=== PATIENT | female | born 2000 | race Caucasian/White ===

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

== ENCOUNTER → 2019-01-30 | Outpatient (CLI) | payer MEDICAID, SELFPAY | END | disposition home or self-care (01) | PROVIDERS: Referring Provider Obstetrics & Gynecology; Visit Provider Obstetrics & Gynecology | DX: Z36.85 Encounter for antenatal screening for Streptococcus B (principal) | CPT/HCPCS: 87081 ==

== ENCOUNTER 2019-02-11 08:05 | Outpatient (CLI) | payer MEDICAID, SELFPAY ==
[2019-02-11] MEDS: Lactated Ringers 1,000 ML 125 ML IV (08:20)
[2019-02-11 08:26] VITALS: BMI 21.5
[2019-02-11 08:40] LABS: Hematocrit 31.7 % (37-47); Hemoglobin 9.9 g/dl (12.0-15.0); Mean Corp Hgb Conc 31.2 g/gl (32-36); Mean Corpuscular Hgb 26.5 pg (27.0-32.0); Mean Platelet Vol. 9.5 fl (6.2-12.0); Platelet Count 206 K/mm3 (150-450); RBC Distribution Width CV 14.4 % (11.6-14.6); RBC Distribution Width SD 44.9 fl (35.1-43.9); Red Blood Count 3.73 M/mm3 (4.2-5.4); Scan Indicated on CBC? Y/N NO; White Blood Count 10.3 K/mm3 (4.4-11.0)
[2019-02-11 08:49] LABS: Prothrombin Time (Protime)PT. 12.6 SECONDS (11.7-14.9)
[2019-02-11 08:50] LABS: Partial Thromboplast Time 25.8 Seconds (24.1-36.2)
--- NOTE | 2019-02-11 11:05 | PCM.OPRPT ---
Report of Operation Date of Procedure: 02/11/19 Pre-Operative Diagnosis: Breech Presentation Post-Operative Diagnosis: Breech Presentation Surgery/Procedure Performed:: External Cephalic Version Description of Surgical Findings:: Viable male in a breech presentation with placenta anterior and on the right side. Head was mobile with a single version attempt. Reactive heart tones before and after the procedure Estimated Blood Loss (mL): Minimal Fluids Replaced: Crystalloid Description of Procedure: After monitoring the baby for approximately an hour and noting reactive heart tones, the ultrasound was used to examine the baby which was noted to be in a breech presentation. Fluid was noted to be adequate and approximately 10 to 15 cm for the amniotic fluid index. Placenta was noted to be anterior but on the right. Patient consented to the procedure and understands the risk of bradycardia and possible emergency section at 37 weeks gestation. The head was noted to be very mobile and after a single version attempt the head was noted to be in the left lower quadrant and nearly vertex. I was unable to move the head any further. Ultrasound was used to demonstrate heart tones and we plan to monitor for well-being for 2 hours. Patient was instructed to follow-up later in the week in the office. Grafts/Implants Used: None - Complications None
[2019-02-11] MEDS: Lactated Ringers 1,000 ML 999 ML IV (14:15)
== END 2019-02-11 16:55 | disposition home or self-care (01) ==
LOC: WPOUT 08:13 → WP 08:13
PROVIDERS: Referring Provider Obstetrics & Gynecology; Visit Provider Obstetrics & Gynecology
DX: O32.1XX0 Maternal care for breech presentation, not applicable or unspecified (principal); Z3A.00 Weeks of gestation of pregnancy not specified
CPT/HCPCS: 96360; 96361 ×8; 59050; 59412; 76815; 85027; 85610; 85730; 86850; 86900; 99218; J7120; G0378

== ENCOUNTER 2019-02-12 09:00 | Inpatient (IN) | payer MEDICAID, SELFPAY ==
[2019-02-11 08:26] VITALS: BMI 21.5
[2019-02-12] VITALS (16 sets, daily range): BP systolic 92–115; BP diastolic 51–71; PULSE 59–89; RESP 13–17; TEMP 36.3–37.5; O2SAT 95–99; BMI 21.7
[2019-02-12] MEDS: Lactated Ringers 1,000 ML 999 ML IV (09:15)
[2019-02-12] MEDS: Terbutaline 1 MG/ML Vial 0.25 MG SC (09:15)
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
[2019-02-12 09:30] LABS: Absolute Lymphocyte Count 1.38 X10^3/ul (0.83-4.51); Absolute Neutrophil Count 9.9 X10^3/uL (2.0-7.7); Basophil# 0.01 X10^3/uL; Basophil% 0.1 % (0-1); Eosinophils% 0.8 % (0-5); Hematocrit 30.7 % (37-47); Hemoglobin 9.6 g/dl (12.0-15.0); Lymphocyte # 1.38 X10^3/ul (4.0); Lymphocyte % 11.4 % (19-41); Mean Corp Hgb Conc 31.3 g/gl (32-36); Mean Corpuscular Hgb 26.4 pg (27.0-32.0); Mean Corpuscular Volume 84.6 fL (81-99); Mean Platelet Vol. 9.3 fl (6.2-12.0); Monocyte# 0.68 X10^3/uL; Monocyte% 5.6 % (0-10); Neutrophil # 9.92 X10^3/uL (2.7-7.7); Neutrophil % 81.8 % (47-70); Platelet Count 187 K/mm3 (150-450); RBC Distribution Width CV 14.5 % (11.6-14.6); RBC Distribution Width SD 44.7 fl (35.1-43.9); Red Blood Count 3.63 M/mm3 (4.2-5.4); White Blood Count 12.1 K/mm3 (4.4-11.0)
[2019-02-12 09:31] LABS: POSITIVE COUNT NO; POSITIVE DIFFERENTIAL NO; POSITIVE MORPHOLOGY NO
[2019-02-12] MEDS: Sodium Citrate/Citric Acid 30 ML UDC PO (09:36)
[2019-02-12] MEDS: Cefazolin 2 GM in 0.9% Normal Saline 100 ML IV (09:38)
[2019-02-12] MEDS: Oxytocin 30 units/NS 500 ml 30 UNITS/500 ML IV.SOLN 167 UNITS IV (09:55)
[2019-02-12] MEDS: Methylergonovine 0.2 MG/ML Ampul IM (09:58)
[2019-02-12] MEDS: Lactated Ringers 1,000 ML 150 ML IV (10:00)
--- NOTE | 2019-02-12 10:13 | NURSING ---
Per Yonathan Connolly RN in OR.
[2019-02-12] MEDS: HYDROmorphone 0.5 MG/0.5 ML SYRINGE IV ×3 (11:30→20:22)
[2019-02-12] MEDS: Lactated Ringers 1,000 ML 100 ML IV ×2 (13:37→22:11)
[2019-02-12] MEDS: Ketorolac 30 MG/ML Syringe IV ×2 (16:13→22:11)
--- NOTE | 2019-02-12 21:10 | OP.PCM_ITS ---
Delivery Classification: ESTELLE Final AGUSTÍN: 03/03/19 Final AGUSTÍN Source: US <20 weeks Gestational age: 37 Weeks and 2 Days doctor who attended delivery (if requested by OB): Akua Chakraborty Indications: Breech presentation, advanced cervical dilatation. Indications for : Breech - labor, advanced cervical dilatation BBOW and unengaged Description of Procedure: Narrative account: After the risks, benefits and alternatives of the procedure were reviewed with the patient, informed consent was obtained. The patient was taken to the Operating room with an IV running, and placed in dorsal supine position. She refused regional anesthesia and requested general anesthesia. As she was adamant and appeared to have a good airway general anesthesia was planned. A Arceo catheter was placed while she was awake and then she was repositioned to dorsal supine position with leftward displacement of the uterus, and prepped and draped in the usual sterile fashion. Once general anesthesia was administered, a Pfannenstiel skin incision was created using the knife. The incision was carried down to the rectus fascia using the knife. The fascia was nicked in the midline. The fascial incision was extended bilaterally using curved Aragon scissors. The superior aspect of the fascial incision was grasped with Sonny clamps and tented up and the underlying rectus abdominal muscles were dissected free. In a similar manner, the inferior aspect of the facial incision was grasped with Sonny clamps tented up and the underlying rectus abdominal muscles were dissected free. The rectus abdominis muscles were in the midline and the peritoneum was identified and entered by blunt dissection high in the incision. The peritoneum was stretched laterally and a bladder blade was inserted. A low transverse uterine incision was then created using Metzenbaum scissors. The operators fingertips were used to extend the uterine incision by blunt dissection in a caudad- cephalad orientation . Clear fluid was noted at amniotomy. The feet were then grasped and delivered through the incision. By maintaining fundal pressure the infant was delivered to the level of the shoulders and the arms were reduced. The VTX was then delivered by maintaining nuchal flexion. The OP and nares were bulb suctioned on the abdomen. The cord clamped x two and cut. And the infant was handed off to the nurse awaiting delivery and to Dr Blair in attendance due to general anesthesia. The baby initially had poor tone and was not crying but recovered quickly. Male 6# 12 oz Ap 06/10. The placenta was then delivered. The uterus was exteriorized and cleared of clots and debris . The uterine incision was repaired with 1 Vicryl in a running locked fashion. A second imbricating layer was then placed, using 1 Monocryl in running nonlocked fashion. Bovie cautery was used to treat any bleeding areas . A figure of eight stitch of 1 Vicryl was placed at the R uterine angle. (a small but stable hematoma was noted at this location). Excellent hemostasis was noted. At this point the uterus was returned to the abdominal cavity. The gutters were cleared of clots and debris and the incision at the uterus was inspected. Excellent hemostasis was noted. The peritoneal edges and rectus abdominis muscles were reapproximated in the midline with interrupted and figure of eight stitches of 1 Vicryl. Excellent hemostasis was noted at the subfascial space The fascia was closed in a running nonlocked fashion with a Stratofix. The Subcutaneous fatty tissue was Bovie cauterized as needed for hemostasis. This layer was then reapproximated in a single layer closure of running 3-0 Vicryl to eliminate space. The skin edges were closed in a Subcuticular stitch of 4-0 Monocryl. The incision was cleansed. Cavilon, Steristrips, and Mepilex dressing were applied to the skin . The patient was then transferred to the recovery room bed in stable condition after tolerating the procedure well. Sponge, lap, needle and instrument counts correct times two. Medications given preop and intraoperatively included: Ancef 2 gm given collections assistant to the operating room. The patient also received Pitocin given IV after cord clamp, and Toradol 30 mg IV times one. Methergine in the R thigh times one for mild uterine atony noted at delivery. For a complete listing of medications given preop and intraoperatively, please see the anesthesia record. Amniotic Membrane Rupture Type: Artificial Amniotic Fluid Description: Clear Placenta Disposition: [facility] Drain: Arceo to straight drain Fluids Replaced: LR Cord Entanglement: None Cord Vessel Description: 3 Vessels Gender: Male (1 minute): 9 (5 minute): 9 Delayed cord clamping: No Pre-op Antibiotic Given: Ancef 2 grams IV x1 Pt instructed on risks of surgery: Bleeding, Anesthesia Risks, Infection Complications: None - Admit VTE Documentation VTE Present on Admission: No VTE Mechan Device Prophylaxis: SCD's VTE Pharm Prophylaxis ordered?: No
[2019-02-12] MEDS: 0.9% Saline Lock 10 ML Syringe IV (22:11)
[2019-02-13] MEDS: HYDROmorphone 0.5 MG/0.5 ML SYRINGE IV ×3 (01:10→14:45)
[2019-02-13 04:27] VITALS: BP 93/52; PULSE 72; RESP 17; TEMP 37.9; O2SAT 97
[2019-02-13] MEDS: Ketorolac 30 MG/ML Syringe IV ×4 (04:34→21:29)
[2019-02-13 04:48] VITALS: TEMP 36.9
--- NOTE | 2019-02-13 04:48 | NURSING ---
Pt. temporal temperature 100.2 degrees. This RN followed up with an oral temperature that was 98.4. Pt. denies feeling too hot or too cold. Vital signs WNL, with pt's blood pressure baseline being 90s/60s. Will continue to monitor.
[2019-02-13 05:03] LABS: Hematocrit 25.1 % (37-47); Hemoglobin 7.7 g/dl (12.0-15.0); Mean Corp Hgb Conc 30.7 g/gl (32-36); Mean Corpuscular Hgb 26.4 pg (27.0-32.0); Mean Platelet Vol. 9.6 fl (6.2-12.0); Platelet Count 211 K/mm3 (150-450); RBC Distribution Width CV 14.2 % (11.6-14.6); RBC Distribution Width SD 42.7 fl (35.1-43.9); Red Blood Count 2.92 M/mm3 (4.2-5.4); White Blood Count 16.5 K/mm3 (4.4-11.0)
[2019-02-13 05:05] LABS: Scan Indicated on CBC? Y/N NO
--- NOTE | 2019-02-13 07:36 | PCM.PN.OB ---
Subjective: POD#1 C/S breech in labor Doing OK. Painful. Dilaudid tolerated ok. Toradol IV q 6 hrs. Breast feeding. Objective: Lying in bed, holding baby - Physical Exam General: Alert, Oriented x3, Cooperative, No apparent distress HEENT: Atraumatic, PERRLA, EOMI, Normocephalic Neck: Supple Abdomen: Soft - fundus at 2 cm inferior to umbilicus tender c/w postop status Skin: Incision - Mepilex CDI. No shadow drainage Neurological: Cranial nerves II-XII grossly intact Psych/Mental Status: Normal Affect Vital Signs Temp Pulse Resp BP Pulse Ox 98.4 F 72 17 93/52 L 97 02/13/19 04:48 02/13/19 04:27 02/13/19 04:27 02/13/19 04:27 02/13/19 04:27 Oxygen Delivery Method Room Air Weight: 63.049 kg Body Mass Index (BMI) 21.7 Intake and Output for Last 24 Hours 02/11/19 02/12/19 02/13/19 23:59 23:59 23:59 Intake Total 3487 / 3487 1006 / 1006 Output Total 1900 / 1900 1500 / 1500 Balance 1587 / 1587 -494 / -494 Laboratory Tests Past 24 Hrs 02/12/19 02/13/19 09:15 04:57 WBC 12.1 H 16.5 H RBC 3.63 L 2.92 L Hgb 9.6 L 7.7 L Hct 30.7 L 25.1 L MCV 84.6 86.0 MCH 26.4 L 26.4 L MCHC 31.3 L 30.7 L RDW 14.5 14.2 RDW Differential 44.7 H 42.7 Plt Count 187 211 MPV 9.3 9.6 Immature Gran % (Auto) 0.300 Neut % (Auto) 81.8 H Lymph % (Auto) 11.4 L [place] % (Auto) 5.6 Eos % (Auto) 0.8 Baso % (Auto) 0.1 Absolute Neuts (auto) 9.9 H Absolute Lymphs (auto) 1.38 Total Counted Not Reportable Medical Necessity - Tobacco Use Smoking Status: Former smoker Assessment/Plan Primary C/S 37 2/7 wk labor, BREECH Stable postop. Inc diet and activity as tolerated. Begin po meds. Tolerating IV Dilaudid so will switch to PO. Prior reported allergy to morphine (hives) D/C burk for voiding trial. IV to S/L for continued toradol Postop acute blood loss anemia superimposed on iron deficiency anemia of Repeat CBC POD#2 Ferrous gluconate bid Leukocytosis. AFEB. likely reactive Repeat CBC POD#2
[2019-02-13 08:20] VITALS: BP 100/61; PULSE 73; RESP 16; TEMP 37.3; O2SAT 97
[2019-02-13] MEDS: Ferrous Gluconate 324 MG Tablet PO ×2 (11:15→16:31)
[2019-02-13] MEDS: Senna/Docusate Sodium 1 Tablet PO (11:15)
[2019-02-13 16:00] VITALS: BP 105/69; PULSE 79; RESP 16; TEMP 37.3
[2019-02-13] MEDS: Acetaminophen 500 MG Tablet 1000 MG PO (18:55)
[2019-02-13 19:50] VITALS: BP 105/65; PULSE 102; RESP 18; TEMP 37
[2019-02-13] MEDS: 0.9% Saline Lock 10 ML Syringe IV (21:28)
[2019-02-13] MEDS: Multivitamins,Ther W-Minerals Tablet 1 TABLET PO (21:45)
[2019-02-14] MEDS: Acetaminophen 500 MG Tablet 1000 MG PO ×2 (02:11→11:40)
[2019-02-14 02:14] VITALS: BP 103/69; PULSE 83; RESP 16; TEMP 37.3
[2019-02-14] MEDS: Ketorolac 30 MG/ML Syringe IV ×2 (03:11→09:37)
[2019-02-14] MEDS: 0.9% Saline Lock 10 ML Syringe IV ×2 (03:11→09:37)
[2019-02-14 06:31] LABS: Hematocrit 25.1 % (37-47); Mean Corp Hgb Conc 31.9 g/gl (32-36); Mean Corpuscular Hgb 27.1 pg (27.0-32.0); Mean Corpuscular Volume 85.1 fL (81-99); Mean Platelet Vol. 9.1 fl (6.2-12.0); Platelet Count 194 K/mm3 (150-450); RBC Distribution Width CV 14.5 % (11.6-14.6); RBC Distribution Width SD 45.2 fl (35.1-43.9); Red Blood Count 2.95 M/mm3 (4.2-5.4); White Blood Count 11.2 K/mm3 (4.4-11.0)
[2019-02-14 06:34] LABS: Scan Indicated on CBC? Y/N NO
--- NOTE | 2019-02-14 07:33 | PCM.PN.OB ---
Subjective: POD#2 Primary C/S Breech labor, advanced cervical dilation Doing OK. Sore. Would like to go home today if able. Tolerated Dilaudid and will go home with oral form. - Physical Exam General: Alert, Oriented x3, Cooperative, No apparent distress HEENT: Atraumatic Neck: Supple Abdomen: Soft - Fundus firm tender c/w postop status at 1-2 cm inferior to umbilicus Skin: Incision - Mepilex CDI. Neurological: Cranial nerves II-XII grossly intact Psych/Mental Status: Normal Affect Vital Signs Temp Pulse Resp BP Pulse Ox 99.1 F 83 16 103/69 97 02/14/19 02:14 02/14/19 02:14 02/14/19 02:14 02/14/19 02:14 02/13/19 08:20 Oxygen Delivery Method Room Air Weight: 63.049 kg Body Mass Index (BMI) 21.7 Intake and Output for Last 24 Hours 02/12/19 02/13/19 02/14/19 23:59 23:59 23:59 Intake Total 3487 / 3487 1006 / 1006 Output Total 1900 / 1900 2450 / 2450 Balance 1587 / 1587 -1444 / -1444 Laboratory Tests Past 24 Hrs 02/14/19 06:10 WBC 11.2 H RBC 2.95 L Hgb 8.0 L Hct 25.1 L MCV 85.1 MCH 27.1 MCHC 31.9 L RDW 14.5 RDW Differential 45.2 H Plt Count 194 MPV 9.1 Medical Necessity - Tobacco Use Smoking Status: Former smoker Assessment/Plan Primary C/S 37 2/7 wk labor, BREECH POD#2 Stable postop. Inc diet and activity as tolerated. Begin po meds. Tolerating IV Dilaudid so will switch to PO. Prior reported allergy to morphine (hives) D/C S/L today Postop acute blood loss anemia superimposed on iron deficiency anemia of Hgb stable Ferrous gluconate bid Leukocytosis. AFEB. likely reactive dec count today Would like to go home today. Dischg order entered. RX sent to [facility] per pt request
--- NOTE | 2019-02-14 07:36 | PCM.DCCSEC ---
Discharge Diet: No Restrictions Discharge Activity: May not drive while taking narcotic pain medications., May Shower, May Take a Tub Bath May resume sexual activity in: 4-6 weeks Lifting Restrictions: 20 pounds Additional Activity Instructions:: Nothing in the vagina for 4-6 weeks. You may return to work/school in 6 weeks. Change Dressing in (Days):: 7 Remove Dressing in (days):: 7 Cleanse incision/area with: Soap & Water, Keep Dressing Clean & Dry Additional Instructions: If you experience any of the following, contact your healthcare provider. Bleeding that soaks a pad every hour for 2 hours Fever 100.4 or higher Unrelieved incision or abdominal pain Swelling, redness, discharge or bleeding from your incision Problems urinating (including inability to urinate or burning while urinating). Visual changes Severe headache Flu-like symptoms Pain or redness in one of both of your breasts Pain, warmth, tenderness or swelling in your legs, especially the calf area Frequent nausea and vomiting Symptoms of depression or anxiety If you experience any of the following, call 911 or go to the nearest Emergency Room. Chest pain Problems breathing Seizure activity Partial or complete paralysis of a body part, slurred speech, weakness or drooping of the face, or a sudden inability to walk or hold your balance Allergies/Adverse Reactions: Allergies azithromycin [From Zithromax] Allergy (Verified 02/11/19 08:27) Rash morphine Allergy (Verified 02/11/19 08:27) Rash Medications to take at Discharge Multivit with Calcium,Iron,Min [Multiple Vitamins For Women] 1 each PO QHS 08/05/18 Ergocalciferol [Vitamin D] 1 tab PO DAILY 12/30/18 Acetaminophen [Tylenol] 1,000 mg PO Q8H PRN tablet 02/14/19 Docusate Sodium [Colace] 100 mg PO BID #30 capsule 02/14/19 Ferrous Gluconate 324 mg PO BIDCM #60 tablet 02/14/19 HYDROmorphone tablet [Dilaudid] 2 mg PO Q4H PRN PRN 7 Days #20 tablet 02/14/19 Polyethylene Glycol 3350 [Miralax] 17 gm PO DAILY PRN #14 packet 02/14/19 The following prescriptions were given: HYDROmorphone tablet [Dilaudid] 2 mg PO Q4H PRN PRN 7 Days #20 tablet PRN Reason: Mod-Severe Pain (4-10/10) Polyethylene Glycol 3350 [Miralax] 17 gm PO DAILY PRN #14 packet PRN Reason: Constipation Docusate Sodium [Colace] 100 mg PO BID #30 capsule Ferrous Gluconate 324 mg PO BIDCM #60 tablet Follow-Up: Call to make an appointment with your doctor for an incision check in 1-2 weeks. You will also need a 6 week post- follow up appointment. Test results from this visit will be discussed in further detail at your follow-up appointment, if applicable. Please Follow Up With: Ryan Ramirez MD - [phone] When: Call to make an appointment for an incision check in 2 weeks. Primary Care Physician: Care Physician,No Primary [Primary Care Provider] - Proposed Discharge Date: 02/14/19
--- NOTE | 2019-02-14 07:41 | DCINST_ITS ---
Discharge Diet: No Restrictions Discharge Activity: May not drive while taking narcotic pain medications., May Shower, May Take a Tub Bath May resume sexual activity in: 4-6 weeks Lifting Restrictions: 20 pounds Additional Activity Instructions:: Nothing in the vagina for 4-6 weeks. You may return to work/school in 6 weeks. Change Dressing in (Days):: 7 Remove Dressing in (days):: 7 Cleanse incision/area with: Soap & Water, Keep Dressing Clean & Dry Additional Instructions: If you experience any of the following, contact your healthcare provider. * Bleeding that soaks a pad every hour for 2 hours * Fever 100.4 or higher * Unrelieved incision or abdominal pain * Swelling, redness, discharge or bleeding from your incision * Problems urinating (including inability to urinate or burning while urinating). * Visual changes * Severe headache * Flu-like symptoms * Pain or redness in one of both of your breasts * Pain, warmth, tenderness or swelling in your legs, especially the calf area * Frequent nausea and vomiting * Symptoms of depression or anxiety If you experience any of the following, call 911 or go to the nearest Emergency Room. * Chest pain * Problems breathing * Seizure activity * Partial or complete paralysis of a body part, slurred speech, weakness or drooping of the face, or a sudden inability to walk or hold your balance Allergies/Adverse Reactions: Allergies azithromycin [From Zithromax] Allergy (Verified 02/11/19 08:27) Rash morphine Allergy (Verified 02/11/19 08:27) Rash Medications to take at Discharge Multivit with Calcium,Iron,Min [Multiple Vitamins For Women] 1 each PO QHS 08/05/18 Ergocalciferol [Vitamin D] 1 tab PO DAILY 12/30/18 Acetaminophen [Tylenol] 1,000 mg PO Q8H PRN tablet 02/14/19 Docusate Sodium [Colace] 100 mg PO BID #30 capsule 02/14/19 Ferrous Gluconate 324 mg PO BIDCM #60 tablet 02/14/19 HYDROmorphone tablet [Dilaudid] 2 mg PO Q4H PRN PRN 7 Days #20 tablet 02/14/19 Polyethylene Glycol 3350 [Miralax] 17 gm PO DAILY PRN #14 packet 02/14/19 The following prescriptions were given: HYDROmorphone tablet [Dilaudid] 2 mg PO Q4H PRN PRN 7 Days #20 tablet PRN Reason: Mod-Severe Pain (4-10/10) Polyethylene Glycol 3350 [Miralax] 17 gm PO DAILY PRN #14 packet PRN Reason: Constipation Docusate Sodium [Colace] 100 mg PO BID #30 capsule Ferrous Gluconate 324 mg PO BIDCM #60 tablet Follow-Up: Call to make an appointment with your doctor for an incision check in 1-2 weeks. You will also need a 6 week post- follow up appointment. Test results from this visit will be discussed in further detail at your follow- up appointment, if applicable. Please Follow Up With: Ryan Ramirez MD - [phone] When: Call to make an appointment for an incision check in 2 weeks. Primary Care Physician: Care Physician,No Primary [Primary Care Provider] - Proposed Discharge Date: 02/14/19
[2019-02-14 07:54] VITALS: BP 97/58; PULSE 68; RESP 18; TEMP 36.8; O2SAT 95
--- NOTE | 2019-02-14 08:26 | PCM.DC.SUM ---
Discharge Date and Diagnosis Date of Admission: 02/12/19 - 37 2/7 wk breech advanced cervical dilation Date of Discharge: 02/14/19 - same S/P primary C/S - Secondary Discharge Diagnosis Chronic Problems (Last Reviewed 11/09/17 @ 15:20 by Vaishali Jean) Palpitations (Chronic) Near syncope (Chronic) Hypotension (Chronic) Hospital Course and Treatment Operations: - - Primary C section Summary of Care Provided: The patient is a 19 year old F at 37 2/7 wk EGA presents in labor , 6-7 cm, breech presentation after failed trial of external cephalic version. Admitted for primary C/S Breech presentation and had procedure on 02/12/19 under general anesthesia (patient request, declined spinal). Gunn viable male footling breech. Apgars 9/9 Postoperative course uneventful Preop Hgb 9.6 gm / dl... dec to 8 g/dl by POD#2 and stable Iron bid started for acute blood loss anemia superimposed on iron deficiency anemia of . Elects dischg home on POD#2 as she is missing her daughter at home. - Physical Exam Vital Signs Temp Pulse Resp BP Pulse Ox 98.2 F 68 18 97/58 L 95 02/14/19 07:54 02/14/19 07:54 02/14/19 07:54 02/14/19 07:54 02/14/19 07:54 Oxygen Delivery Method Room Air Weight: 63.049 kg Body Mass Index (BMI) 21.7 Intake and Output for Last 24 Hours 02/12/19 02/13/19 02/14/19 23:59 23:59 23:59 Intake Total 3487 / 3487 1006 / 1006 Output Total 1900 / 1900 2450 / 2450 Balance 1587 / 1587 -1444 / -1444 Laboratory Tests Past 24 Hrs 02/14/19 06:10 WBC 11.2 H RBC 2.95 L Hgb 8.0 L Hct 25.1 L MCV 85.1 MCH 27.1 MCHC 31.9 L RDW 14.5 RDW Differential 45.2 H Plt Count 194 MPV 9.1 Discharge Diet: No Restrictions Discharge Activity: May not drive while taking narcotic pain medications., May Shower, May Take a Tub Bath May resume sexual activity in: 4-6 weeks Additional Activity Instructions:: Nothing in the vagina for 4-6 weeks. You may return to work/school in 6 weeks. Change Dressing in (Days):: 7 Remove Dressing in (days):: 7 Cleanse incision/area with: Soap & Water, Keep Dressing Clean & Dry Home Medications: Medications to take at Discharge Multivit with Calcium,Iron,Min [Multiple Vitamins For Women] 1 each PO QHS 08/05/18 Ergocalciferol [Vitamin D] 1 tab PO DAILY 12/30/18 Acetaminophen [Tylenol] 1,000 mg PO Q8H PRN tablet 02/14/19 Docusate Sodium [Colace] 100 mg PO BID #30 capsule 02/14/19 Ferrous Gluconate 324 mg PO BIDCM #60 tablet 02/14/19 HYDROmorphone tablet [Dilaudid] 2 mg PO Q4H PRN PRN 7 Days #20 tablet 02/14/19 Polyethylene Glycol 3350 [Miralax] 17 gm PO DAILY PRN #14 packet 02/14/19 Following Prescrptions Were Given to Patient: HYDROmorphone tablet [Dilaudid] 2 mg PO Q4H PRN PRN 7 Days #20 tablet PRN Reason: Mod-Severe Pain (4-10/10) Polyethylene Glycol 3350 [Miralax] 17 gm PO DAILY PRN #14 packet PRN Reason: Constipation Docusate Sodium [Colace] 100 mg PO BID #30 capsule Ferrous Gluconate 324 mg PO BIDCM #60 tablet Primary Care Physician: Care Physician,No Primary [Primary Care Provider] - Please Follow Up With: Ryan Ramirez MD - [phone] When: Call to make an appointment for an incision check in 2 weeks. Medical Necessity - Tobacco Use Smoking Status: Former smoker Meaningful Use Info Meaningful Use Diagnoses (Choose all that apply): None applicable
[2019-02-14] MEDS: Ferrous Gluconate 324 MG Tablet PO (09:30)
--- NOTE | 2019-02-14 12:50 | CASEMGMT ---
Social Work Assessment Labor and Delivery Unit Date of Referral: 02/13/2019 Time of Referral: 1227 Referred By: Dr. Marroquin Date of Intervention: 02/14/2019 Time of Intervention: 1030 Reason for Referral: PHQ9, score of 5 History obtained from: medical record and mother of baby (VANNESA) Sarah Young Household composition: MOB, father of baby (FOB) Liu Mojica, their first child, and MOB?s mother live in the same home. MOB reports home situation is safe and adequate. Patient's parent/guardian status: VANNESA is 19 year old single female, in a relationship with FOB for almost 4 years now. MOB denies any safety concerns or history of abuse with FOB. MOB and FOB now have 2 children together: Merced Mojica was born 2.10.19 and baby boy, Omar Mojica was born on 02.12.2019. Medical History: VANNESA is G2, P1 to 2 after delivering Omar. VANNESA has history of a 13 week loss in March of 2016. MOB with care starting late in the first trimester. VANNESA presented with breech presentation and had a primary caesarian section for Omar. Omar was born weighing 6 pounds 12 ounces, Apgars 9 and 9. Educational Status: VANNESA graduated high school, is able to read, write, and understand what is read. Financial Status: MARIFER works fulltime as an print developer automatic at a local [employer]. MOB?s mother pays rent to MOB and FOB. VANNESA does not work outside the home. Supplies: VANNESA reports had a baby shower for this baby and has enough supplies for both children, including safe sleep spaces for both. VANNESA denies needing any essential items to care for baby at home going. MOB plans to breast feed a short time and then switch to formula. States to have formula at home for when transition occurs. Childcare/Caregiver(s): VANNESA is primary caregiver, but will have help as needed from FOB and family. 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 No issues with transportation reported or identified. Programs/Agencies Involved: MOB had WIC and then food and medical through [facility]. MOB reports did have [facility] for a short time after Merced was born. Denies interest in a new referral for this baby. Plans on Dr. Vegas for pediatric follow up. Children Services/Legal Issues: Denies any past or present involvement. Behavioral Health Issues: Mental Health History: MOB reports has had depression and anxiety in the past, with anxiety being more prominent. MOB reports last panic attack was over a year and a half ago. MOB denies any depression or anxiety after Merced was born, but around 30 weeks into this did not notice some mood changes. MOB attributes to changes in hormone. MOB states that feels much better currently, since of Omar, than has in the last couple of months. MOB denies any history of suicidal thoughts, plans, intent or attempts. Reports history fo counseling on and off through the years, with last treatment at [facility] in [place]. Substance Use History: As a teen MOB reports tried marijuana but has not use since before with Merced. MOB denies any alcohol use in and denies other substance use or abuse issues. Drug Screens: negative maternal drug screen on 08.20.2018. PHQ9: Reviewed MOB?s PHQ9 scoring. MOB denies any thoughts of suicide, negativity about self, or feeling hopeless. MOB reports has had a down mood, that some days wanted to just stay in bed and not get up to do things. MOB reports feels that was sleeping more and had decreased energy. MOB contributed symptoms to the end of /being tired, to MOB having low iron and vitamin D, and in part due to generalized mood issues. MOB reports talking to FOB, going over to [id number]?s home (not isolating), and then focusing on Merced?s needs helped MOB to stay motivated and cope when feeling down. Family/Social Stressors: Closely spaced pregnancies, but MOB reports that when Merced was 6 months old MOB and FOB started to actively try to have a baby. No other stressors identified. MOB?s mother recently moved in but MOB sees this as a helpful thing. Support Systems: MOB reports FOB is a strong support. MOB?s mother will help when home and not working. FOB?s mother has taken some time off of work to help MOB with transition home after caesarian section, as FOB was not able to take time off of work. Depression/Shaken Baby/Safe Sleeping: MOB able to give appropriate responses to shaken baby prevention and safe sleeping. MOB listened to education on depression and anxiety. MOB reports willingness to seek out counseling again, should MOB need it in the future. Explored with MOB as to what MOB would identified as a ?need? to return to counseling. MOB able to appropriately express limits and boundaries in regards to when MOB would be willing to seek help. MOB reports she talks a lot to FOB and this is helpful to MOB in managing anxiety and emotions. ASSESSMENT: MOB pleasant, calm, receptive to social work visit and friendly. MOB?s affect appropriate, bright, smiled at appropriate times, and engaged easily in conversation with medical social worker. MOB held baby to chest for duration of social work visit. Observed MOB to enfold baby, touch baby, and gaze at baby. MOB reports to feel a positive connection to baby already, and that negro has developed more quickly as compared to daughter Merced. MOB reports to have enough support at home, to have supplies, and to feel better emotionally as compared to the last couple of months. MOB agreeable to take resource information offered, and reports agreement to seek out counseling again should symptoms start impacting ability to care for self or for kids. MOB talked about having a hard time with caesarian section, that is MOB is more worried about this recovery than transitioning to having two kids. MOB reports to feel ready for discharge today, as will have help from mother-in -law and just feels more comfortable in own environment. PLAN: MOB and baby to home when ready. [facility] reproduces list provided, [facility] information given, and depression packet given including local and online parent support and mental health resources. No other services requested or indicated. -KYLEE Ghosh, DIRECTOR PUBLIC
[2019-02-14 13:44] VITALS: BP 98/63; PULSE 102; RESP 18; TEMP 37.2; O2SAT 96
== END 2019-02-14 14:15 | disposition home or self-care (01) | DRG 540 ==
PROVIDERS: Obstetrics & Gynecology; Admitting Provider Obstetrics & Gynecology; Visit Provider Obstetrics & Gynecology
DX: O64.1XX0 Obstructed labor due to breech presentation, not applicable or unspecified (principal); Z3A.37 37 weeks gestation of pregnancy; Z37.0 Single live birth; D50.9 Iron deficiency anemia, unspecified; O99.02 Anemia complicating childbirth; Z87.891 Personal history of nicotine dependence; D72.829 Elevated white blood cell count, unspecified; O99.12 Other diseases of the blood and blood-forming organs and certain disorders involving the immune mechanism complicating childbirth; D62 Acute posthemorrhagic anemia
CPT/HCPCS: 59025; 59050; 59412; 76815; 85025; 85027; 85610; 85730; 86850; 86900; 99218; J7120; A4216; G0378; J2405

== ENCOUNTER → 2020-05-28 08:26 | Outpatient (CLI) | payer MEDICAID, SELFPAY ==
[2019-02-12 09:19] VITALS: BMI 21.7
--- NOTE | 2020-05-28 08:35 | RAD_ITS ---
STUDY: AIR-CONTRAST UPPER GI SERIES AND SMALL BOWEL FOLLOW-THROUGH EXAMINATION. REASON FOR EXAM: Female, 20 years old. FAILURE TO GAIN WEIGHT, OCCASIONAL CRAMPING AFTER EATING -- 20 FLUORO IMAGES, 117 FLUORO SEC, 95.28mGy FLUOROSCOPY TIME (if supplied): ( 117 seconds ) minutes/seconds TECHNIQUE: The patient ingested barium. Multiple images of the esophagus, stomach and duodenum were obtained. Following this, a small bowel follow-through examination was performed. COMPARISON: None. FINDINGS: The esophagus is unremarkable. There is no evidence of esophageal obstruction. The stomach and duodenum are unremarkable. A small bowel follow-through examination was then obtained. The small bowel transit is normal. There is no evidence of intrinsic or extrinsic small bowel disease. RAD/Upper GI/w Small Bowel IMPRESSION: Unremarkable air contrast upper GI series and small bowel follow-through examination. Electronically Signed: Arian Daly, at 12:39 EDT , Service support ,
== END ==
PROVIDERS: Referring Provider Nurse Practitioner Adult Health; Visit Provider Nurse Practitioner Adult Health
DX: R10.9 Unspecified abdominal pain (principal); R62.7 Adult failure to thrive
CPT/HCPCS: 74246; 74248

== ENCOUNTER 2020-07-28 10:53 | Day surgery (SDC) | payer MEDICAID, SELFPAY ==
[2019-02-12 09:19] VITALS: BMI 21.7
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
[2020-07-28] VITALS (7 sets, daily range): BP systolic 82–101; BP diastolic 45–64; PULSE 64–88; RESP 16–18; TEMP 36–37.2; O2SAT 99–100; BMI 17.2
[2020-07-28] MEDS: Lactated Ringers 1,000 ML 75 ML IV (11:35)
--- NOTE | 2020-07-28 12:00 | COLBX_PTH ---
PATIENT: VLADIMIR BAH LOC: EN U#:[id number] AGE/SX: 20/F ROOM: RE07/28/[address]: Dr. Jessica Urban MD : 2000 BED: DIS: 07/28/2020 SPEC #: [id number] RECD: 07/28/20 13:04 STATUS: JOLENE NEERAJ #: [id number] RODOLFO: 07/28/20 12:[address]: Jessica Urban DEPT: SURGICAL PATHOLOGY RECD BY: Michael Jimenez ENTERED: 07/28/20 13:31 SP TYPE: COLON BX OTHR DR: Emily Primary Care Phys Tissues: A - Gastric mucous membrane B - Esophagus, NOS C - COLON BIOPSY Procedures: Surgery Specimen Level IV HEADER OPERATION: Colonoscopy, EGD ([facility] [place]) PRE-OP DIAGNOSIS: Inability to gain weight; lack of appetite; abdominal discomfort TISSUE SUBMITTED: A - Antrum biopsy for histo and H. pylori, B - Mid esophagus biopsy, C - Random colonic biopsy MICROSCOPIC DIAGNOSIS A. Gastric antrum, biopsy: Chronic gastritis, mild to moderate. See comment. B. Mid esophagus, biopsy: Fragments of benign squamous mucosa. C. Colon, random biopsy: No pathologic change. AM:amandeep 07/29/20 COMMENT A. The results of immunohistochemistry for Helicobacter pylori will be reported separately ([id number]). MICROSCOPIC DESCRIPTION Slides are reviewed. GROSS DESCRIPTION A - Received in fixative is one container labeled with the patient's name and designated antrum biopsy. The specimen consists of one irregular fragment of light cadena soft tissue that measures 0.2 x 0.2 x 0.1 cm. The specimen is totally submitted in one cassette. B - Received in fixative is one container labeled with the patient's name and designated mid esophagus biopsy. The specimen consists of two irregular fragments of light cadena soft tissue that in aggregate measure 0.4 x 0.2 x 0.1 cm. The specimen is totally submitted in one cassette. C - Received in fixative is one container labeled with the patient's name and designated random colonic biopsy. The specimen consists of multiple irregular fragments of light cadena soft tissue that in aggregate measure 1.5 x 0.2 x 0.1 cm. The specimen is totally submitted in one cassette. / ALYCIA:amandeep 07/28/20 TC:3 CPT: 41920 x3
--- NOTE | 2020-07-28 12:00 | IMM_PTH ---
PATIENT: VLADIMIR BAH LOC: EN U#:[id number] AGE/SX: 20/ ROOM: RE07/28/[address]: Dr. Jessica Urban MD : 2000 BED: DIS: 07/28/2020 SPEC #: [id number] RECD: 07/28/20 13:31 STATUS: JOLENE RELacie #: [id number] RODOLFO: 07/28/20 12:[address]: Jessica Urban DEPT: IMMUNOHISTOCHEMISTRY RECD BY: Yaima Juan ENTERED: 07/28/20 13:32 SP TYPE: IMMUNO OTHR DR: No Primary Care Phys Tissues: A - Stomach, NOS Procedures: H Pylori (initial) PHYSICIAN & INSTITUTION [place] [id number] SPECIMEN INFORMATION: Tissue Source: A - Antrum biopsy Clinical Info: Inability to gain weight; lack of appetite; abdominal discomfort Specimen Number: [id number] CPT code: 38942 METHODOLOGY: Deparaffinized sections of prefer/formalin-fixed tissue or PAP/DQ stained slides are incubated with monoclonal/polyclonal antibodies/oligonucleotide probes. Localization is made via biotin free immunoperoxidase method. Appropriate controls are performed and reacted as expected. Results on target cell population are indicated in the following table: RESULTS: ANTIBODY / CLONE RESULT Block A H Pylori (polyclonal) negative These tests were developed and their performance characteristics determined by [facility]. They may not have been cleared or approved by the U.S. Food and Drug Administration. The FDA has determined that such clearance or approval is not necessary. INTERPRETATION: A. Antrum biopsy: Negative for Helicobacter pylori organisms. AM:amandeep 07/29/20
--- NOTE | 2020-07-28 12:23 | OP.CCLET_ITS ---
07/28/2020 No Primary Care Physician Re : Upper GI endoscopy procedure for Sarah Mojica Dear Care Physician This procedure was performed on Tuesday, July 28, 2020. My impressions and recommendations are as follows: Impressions : - Normal first portion of the duodenum and second portion of the duodenum. - Normal stomach. Biopsied. - Normal esophagus. Biopsied. Recommendations : - Discharge patient to home (ambulatory). - Resume previous diet. - Continue present medications. - Await pathology results. - Follow up with Fawn Griffin in one to two weeks to discuss pathology results. - My findings are described in the full procedure note, which is enclosed. If I can be of further assistance, please feel free to contact me at Doctor phone number(s): , Work: . Sincerely, MD Jessica Bautista MD 07/28/2020 12:23:10 PM This report has been signed electronically.
--- NOTE | 2020-07-28 12:23 | OP.EGD_ITS ---
Patient Name: Sarah Mojica Procedure Date: 07/28/2020 11:41 AM Date of : 2000 Age: 20 Procedure: Upper GI endoscopy Indications: Weight loss Providers: Jessica Urban MD Referring MD: No Primary Care Physician Medicines: See the Anesthesia note for documentation of the administered medications Patient Profile: Refer to note in patient chart for documentation of history and physical. Complications: No immediate complications. Procedure: Pre-Anesthesia Assessment: - see anesthesia note After obtaining informed consent, the endoscope was passed under direct vision. Throughout the procedure, the patient's blood pressure, pulse, and oxygen saturations were monitored continuously. The Endoscope was introduced through the mouth, and advanced to the second part of duodenum. The upper GI endoscopy was accomplished without difficulty. The patient tolerated the procedure well. Scope In: 11:49:55 AM Scope Out: 11:57:05 AM Total Procedure Duration Time 0 hours 7 minutes 10 seconds Findings: The first portion of the duodenum and second portion of the duodenum were normal. The entire examined stomach was normal. Retained bile was noted in the stomach and enterogastric reflux of bile was also noted. Biopsies were taken with a cold forceps for histology. Verification of patient identification for the specimen was done by the nurse. The examined esophagus was normal. Biopsies were taken with a cold forceps of the mid esophagus for histology. Verification of patient identification for the specimen was done by the nurse. Estimated blood loss was minimal. Impression: - Normal first portion of the duodenum and second portion of the duodenum. - Normal stomach. Biopsied. - Normal esophagus. Biopsied. Recommendation: - Discharge patient to home (ambulatory). - Resume previous diet. - Continue present medications. - Await pathology results. - Follow up with Fawn Griffin in one to two weeks to discuss pathology results. - Procedure Code(s): --- Professional --- 73440, Esophagogastroduodenoscopy, flexible, transoral; with biopsy, single or multiple Diagnosis Code(s): --- Professional --- R63.4, Abnormal weight loss CPT copyright 2017 [employer]. All rights reserved. The codes documented in this report are preliminary and upon film archivist review may be revised to meet current compliance requirements. MD Jessica Bautista MD 07/28/2020 12:23:10 PM This report has been signed electronically. Number of Addenda: 0 Note Initiated On: 07/28/2020 11:41 AM
--- NOTE | 2020-07-28 12:25 | OP.CCLET_ITS ---
07/28/2020 No Primary Care Physician Re : Colonoscopy procedure for Sarah Mojica Dear Care Physician This procedure was performed on Tuesday, July 28, 2020. My impressions and recommendations are as follows: Impressions : - Non-bleeding internal hemorrhoids. - Biopsies were taken with a cold forceps from the entire colon for evaluation of microscopic colitis. Recommendations : - Discharge patient to home (ambulatory). - Resume previous diet. - Continue present medications. - Follow up with Fawn Griffin for pathology results in 1-2 weeks - No recommendation at this time regarding repeat colonoscopy due to age. My findings are described in the full procedure note, which is enclosed. If I can be of further assistance, please feel free to contact me at Doctor phone number(s): , Work: . Sincerely, MD Jessica Bautista MD 07/28/2020 12:25:14 PM This report has been signed electronically.
--- NOTE | 2020-07-28 12:25 | OP.COLON_ITS ---
Patient Name: Sarah Mojica Procedure Date: 07/28/2020 11:57 AM Date of : 2000 Age: 20 Procedure: Colonoscopy Indications: Weight loss Providers: Jessica Urban MD Referring MD: No Primary Care Physician Medicines: See the Anesthesia note for documentation of the administered medications Patient Profile: Refer to note in patient chart for documentation of history and physical. Last Colonoscopy: none. The patient's first colonoscopy is today. Complications: No immediate complications. Procedure: Pre-Anesthesia Assessment: - see anesthesia note After I obtained informed consent, the scope was passed under direct vision. Throughout the procedure, the patient's blood pressure, pulse, and oxygen saturations were monitored continuously. The Colonoscope was introduced through the anus and advanced to the cecum, identified by the appendiceal orifice, ileocecal valve and palpation. The colonoscopy was performed without difficulty. The patient tolerated the procedure well. The quality of the bowel preparation was adequate. Scope In: 12:00:11 PM Scope Withdrawal Time 0 hours 11 minutes 49 seconds Scope Out: 12:18:06 PM Total Procedure Duration Time 0 hours 17 minutes 55 seconds Findings: The perianal and digital rectal examinations were normal. Non-bleeding internal hemorrhoids were found. Biopsies for histology were taken with a cold forceps from the entire colon for evaluation of microscopic colitis. Estimated blood loss was minimal. Impression: - Non-bleeding internal hemorrhoids. - Biopsies were taken with a cold forceps from the entire colon for evaluation of microscopic colitis. Recommendation: - Discharge patient to home (ambulatory). - Resume previous diet. - Continue present medications. - Follow up with Fawn Griffin for pathology results in 1-2 weeks - No recommendation at this time regarding repeat colonoscopy due to age. Procedure Code(s): --- Professional --- 20501, Colonoscopy, flexible; with biopsy, single or multiple Diagnosis Code(s): --- Professional --- K64.8, Other hemorrhoids R63.4, Abnormal weight loss CPT copyright 2017 [employer]. All rights reserved. The codes documented in this report are preliminary and upon spring internship review may be revised to meet current compliance requirements. MD Jessica Bautista MD 07/28/2020 12:25:14 PM This report has been signed electronically. Number of Addenda: 0 Note Initiated On: 07/28/2020 11:57 AM
[2020-07-28 12:44] LABS: Internal QC Validated? YES +Cl - CLEAR BKGD; Pregnancy, Urine Negative Negative
== END 2020-07-28 13:05 | disposition home or self-care (01) ==
LOC: EN 10:54 → AC 10:56
PROVIDERS: Anesthesiology; Visit Provider Surgery
PROC: 0DJD8ZZ Inspection of Lower Intestinal Tract, Via Natural or Artificial Opening Endoscopic (ICD-10-PCS; CPT 45378; principal; 2020-07-28 11:55)
DX: R63.4 Abnormal weight loss (principal); Z68.1 Body mass index [BMI] 19.9 or less, adult; Z20.828 Contact with and (suspected) exposure to other viral communicable diseases; Z86.19 Personal history of other infectious and parasitic diseases; F17.200 Nicotine dependence, unspecified, uncomplicated; K64.8 Other hemorrhoids
CPT/HCPCS: 43239; 45380; 81025; 87635; 88305; 88342; C9803; J7120; J2405; U0003

== ENCOUNTER → 2022-07-12 | Outpatient (CLI) | payer MEDICAID, SELFPAY ==
[2022-07-12 14:56] LABS: hCG Titer Quant., Serum 7890 mIU/mL (1-3)
== END | disposition home or self-care (01) ==
LOC: WOBLAB 13:55
PROVIDERS: Visit Provider Student in an Organized Health Care Education/Training Program
DX: N91.2 Amenorrhea, unspecified (principal)
CPT/HCPCS: 36415; 84702

== ENCOUNTER 2022-11-28 14:20 | Outpatient (CLI) | payer MEDICAID, SELFPAY ==
[2022-11-28 14:42] VITALS: BP 93/56; PULSE 93; TEMP 36.4; O2SAT 100
[2022-11-28 15:20] LABS: ROM Internal Control Test YES-OK TO RESULT pt. (Internal QC); ROM Patient Test Negative (Negative)
[2022-11-28 15:21] VITALS: PULSE 85; O2SAT 97
[2022-11-28 15:24] VITALS: BMI 21.6
[2022-11-28 15:33] LABS: Color, Urine Yellow (Yellow); Glucose, Dipstick Normal (Normal); Ketone-Dipstick Negative (Negative); Leukocyte Esterase-Dipstick 500 /ul (Negative); Nitrite-Dipstick Negative (Negative); Occult Blood-Urine Negative /ul (Negative); Protein-Dipstick Negative (Negative); Urine Bilirubin Dipstick Negative (Negative); Urine Clarity Clear (Clear); Urine Urobilinogen 1 mg/dl (Normal)
--- NOTE | 2022-12-02 08:42 | OB.TRI.NOTE ---
HPI - General HPI Narrative VLADIMIR BAH, is a 22 F at 25.5 weeks gestation who presents to rule out labor. She reports having an increased amount of vaginal fluid and pelvic pressure. She does not have any history of labor or deliveries. [facility] Medical History (Updated 12/02/22 @ 08:45 by Elisabeth Caba CNM) Anxiety Bipolar 1 disorder Broken back Broken foot Depression Depression affecting in first trimester, antepartum Hepatitis C History of blood transfusion Hypotension Near syncope Palpitations depression labor (spontaneous vaginal delivery) (spontaneous vaginal delivery) Trauma Home Medications cnolkuex-osu-Bv-FA 1 mg tablet See Rx Instructions .Route .COMPLEX 11/28/22 [History Last Taken 11/27/22] Allergy/AdvReac Type Severity Reaction Status Date / Time azithromycin [From Zithromax] Allergy Rash Verified 07/28/20 11:14 morphine Allergy Rash Verified 07/28/20 11:14 Family History (Updated 05/28/18 @ 14:23 by Miriam Owens) Father Cancer esophageal cancer Mother Syncope Grandmother Atrial fibrillation Surgical History (Updated 11/28/22 @ 15:31 by Yudy Gay) history of brachial artery repair History of tonsillectomy and adenoidectomy Previous section Status post myringotomy with tube placement of both ears Social History (Updated 05/29/18 @ 09:18 by Vaishali LESTER, PA) Smoking Status: Current every day smoker alcohol intake: current alcohol intake frequency: holidays/special occasions only substance use type: does not use caffeine: Yes Type: carbonated beverages History Elective abortions Hx Para 1 Spontaneous abortions Hx # Term Pregnancies Ectopic pregnancies Hx # Pregnancies Multiple births # of living children ROS Eyes Eyes: Denies blurry vision Cardiovascular Cardiovascular: Reports none; Denies chest pain at rest, chest pain with activity or dizziness Respiratory/Chest Respiratory/Chest: Denies cough or dyspnea Gastrointestinal Gastrointestinal: Reports none and other; Denies diarrhea or vomiting Genitourinary Genitourinary: Denies dysuria Musculoskeletal Musculoskeletal: Reports none Integumentary Integumentary: Reports none; Denies rash Neurologic Neurologic: Denies dizziness, headache(s) or other visual disturbances Psychiatric Psychiatric: Reports none Physical Exam Const alert and no apparent distress General Appearance: cooperative Orientation / Consciousness: awake Exam Limitations: no limitations HEENT normocephalic Eyes General Eye: normal appearance of both eyes Neck full ROM Chest inspection of chest normal Resp normal respiratory effort and normal air movement Effort and Inspection: symmetric chest movement Auscultation: clear to auscultation bilaterally Cardio regular rate GI soft to palpation, non-tender and non-distended Inspection: and other Back/Spine normal ROM Extremity full ROM, normal capillary refill and no calf tenderness Skin no rashes or lesions noted Neuro oriented x3 and CN's II-XII intact bilaterally Psych mental status grossly normal NST FHR Rate Baby A Baseline: 140 Variability:: Moderate Accelerations:: 15 x 15 Decelerations:: None NST Reactive:: Appropriate for gestational age Uterine Activity:: None Assessment & Plan (1) False labor: (2) 25 weeks gestation of : (3) Abnormal vaginal fluids: PLAN: Plan ROM plus- negative NO contractions via TOCO CE- closed D/C home with follow up in office this week
== END 2022-11-28 17:15 | disposition home or self-care (01) ==
LOC: WPOUT 14:24 → WP 14:25
PROVIDERS: Referring Provider Advanced Practice Midwife; Visit Provider Advanced Practice Midwife
DX: O47.02 False labor before 37 completed weeks of gestation, second trimester (principal); O99.332 Smoking (tobacco) complicating pregnancy, second trimester; F17.210 Nicotine dependence, cigarettes, uncomplicated; Z3A.25 25 weeks gestation of pregnancy
CPT/HCPCS: 59025; 59050; 81002; 84112; 99221; G0378

== ENCOUNTER 2023-02-11 22:35 | Outpatient (CLI) | payer MEDICAID, SELFPAY ==
[2023-02-11 22:53] VITALS: BP 116/72; PULSE 65; TEMP 37.2; O2SAT 94
[2023-02-11 23:01] VITALS: BMI 22.8
[2023-02-12 01:13] VITALS: BP 98/57; PULSE 72; TEMP 37.2
[2023-02-12 06:00] VITALS: TEMP 36.6
[2023-02-12 06:01] VITALS: BP 102/61; PULSE 70; O2SAT 98
[2023-02-12 09:16] VITALS: BP 97/62; PULSE 102
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
== END 2023-02-12 09:21 | disposition home or self-care (01) ==
LOC: WPOUT 22:40 → WP 22:41
PROVIDERS: Visit Provider Obstetrics & Gynecology
DX: O47.03 False labor before 37 completed weeks of gestation, third trimester (principal); Z3A.36 36 weeks gestation of pregnancy; Z87.891 Personal history of nicotine dependence
CPT/HCPCS: 59025; 59050; 99221; G0378

== ENCOUNTER 2023-03-03 06:56 | Inpatient (IN) | payer MEDICAID, SELFPAY ==
[2023-03-03] VITALS (27 sets, daily range): BP systolic 96–126; BP diastolic 56–87; PULSE 58–95; RESP 16; TEMP 36.2–37; O2SAT 92–100; BMI 23.9
[2023-03-03] MEDS: Lactated Ringers 1,000 ML 50 ML IV (07:45)
[2023-03-03] MEDS: Oxytocin 15 Units/NS 250ml 15 UNITS/250 ML IV.SOLN 2 UNITS IV (08:32)
[2023-03-03 08:48] LABS: Absolute Neutrophil Count 6.7 X10^3/uL (2.0-7.7); Basophil# 0.02 X10^3/uL; Basophil% 0.2 % (0-1); Eosinophil# 0.13 X10^3/uL; Eosinophils% 1.4 % (0-5); Hematocrit 33.3 % (37-47); Lymphocyte % 18.2 % (19-41); Mean Corpuscular Hgb 27.2 pg (27.0-32.0); Mean Corpuscular Volume 90.5 fL (81-99); Mean Platelet Vol. 10.5 fl (6.2-12.0); Monocyte# 0.79 X10^3/uL; Monocyte% 8.4 % (0-10); NRBC Flagged by Analyzer 0 % (0-5); Neutrophil # 6.65 X10^3/uL (2.7-7.7); Neutrophil % 71.2 % (47-70); Platelet Count 244 K/mm3 (150-450); RBC Distribution Width CV 14.8 % (11.6-14.6); RBC Distribution Width SD 48.7 fl (35.1-43.9); Red Blood Count 3.68 M/mm3 (4.2-5.4); White Blood Count 9.4 K/mm3 (4.4-11.0)
[2023-03-03 09:31] LABS: Syphilis Antibodies Non-reactive
[2023-03-03] MEDS: LACTATED RINGERS 500 ML 999 ML IV (10:02)
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
[2023-03-03] MEDS: fentaNYL-bupivacaine (epidural) 100 ML BAG EPIDURAL (10:53)
--- NOTE | 2023-03-03 11:08 | PCM.OPRPT ---
Problems Associated Problem List Diagnoses (1) (vaginal after ): Report of Operation Date of Procedure: 03/03/23 Pre-Operative Diagnosis: 39 week gestation, single IUP, history prior section, [facility] Post-Operative Diagnosis: Surgery/Procedure Performed:: Description of Surgical Findings:: VMI in YANETH position. Normal placenta with 3 VC. Apgars 9, 9 Surgeon: Patricia Conte Type of Anesthesia: Epidural Special Medications: None Specimen's removed: Placenta Drains: None Estimated Blood Loss (mL): 200 Fluids Replaced: N/A Description of Procedure: Patient was complete and pushing. The head of the was delivered in left occiput anterior position over intact perineum. Anterior shoulder delivered with gentle downward traction, followed by the posterior shoulder and body of the without any force or delay. A loose nuchal cord x1 was noted and infant was delivered through the nuchal cord. A vigorous viable male was delivered and placed on maternal abdomen. The cord was clamped and cut after a 60 sec delay by the father of the baby. Cord blood was obtained. The placenta delivered with gentle fundal massage and was noted to be normal-appearing and intact with a three-vessel cord. No lacerations were noted. Fundus firm and bleeding hemostatic. Vaginal sweep was performed. Sponge counts were correct. Grafts/Implants Used: None Complications None
[2023-03-03] MEDS: Oxytocin 15 Units/NS 250ml 15 UNITS/250 ML IV.SOLN 83 UNITS IV (11:55)
[2023-03-03] MEDS: Ibuprofen 600 MG Tablet PO (13:26)
[2023-03-04] VITALS (7 sets, daily range): BP systolic 98–113; BP diastolic 59–73; PULSE 52–91; RESP 16; TEMP 36.7–36.9
[2023-03-04] MEDS: Ibuprofen 600 MG Tablet PO ×2 (00:15→09:06)
--- NOTE | 2023-03-04 08:40 | PCM.PN.OB ---
Subjective Subjective Doing well per patient and nursing staff. Ambulating and taking PO without difficulty. Voiding and passing flatus. Pain controlled. , services for assistance. Denies headache, visual changes, chest pain, shortness of breath, leg pain or increased bleeding. Lochia normal. Objective Data Objective Data Vital Signs: Vital Signs Temp Pulse Resp BP Pulse Ox O2 Del Method 98.0 F 52 L 16 103/59 L 98 Room Air 03/04/23 04:20 03/04/23 04:21 03/04/23 04:20 03/04/23 04:21 03/03/23 10:47 03/04/23 00:17 Oxygen Delivery Method Room Air Weight: 153 lb Body Mass Index (BMI) 23.9 Intake & Output: Intake and Output for Last 24 Hours 03/02/23 03/03/23 03/04/23 23:59 23:59 23:59 Intake Total 1457.50 / 1457.50 Output Total 1300 / 1300 Balance 157.50 / 157.50 Lab / Micro Data Result Diagrams: 03/03/23 07:45 Labs: Laboratory Results - last 24 hr 03/03/23 07:45: WBC 9.4, RBC 3.68 L, Hgb 10.0 L, Hct 33.3 L, MCV 90.5, MCH 27.2, MCHC 30.0 L, RDW Std Deviation 48.7 H, RDW Coeff of Muna 14.8 H, Plt Count 244, MPV 10.5, Immature Gran % (Auto) 0.600, Neut % (Auto) 71.2 H, Lymph % (Auto) 18.2 L, [place] % (Auto) 8.4, Eos % (Auto) 1.4, Baso % (Auto) 0.2, Absolute Neuts (auto) 6.7, Absolute Lymphs (auto) 1.70, Nucleated RBC % 0 03/03/23 07:45: Blood Type O POSITIVE, Antibody Screen NEGATIVE 03/03/23 07:45: Syphilis Total Ab Non-reactive ROS Constitutional Constitutional: Denies fatigue, fever(s) or malaise Eyes Eyes: Denies change in vision ENT HEENT: Denies dizziness or headache(s) Cardiovascular Cardiovascular: Denies chest pain, dyspnea or lightheadedness Respiratory/Chest Respiratory/Chest: Denies cough or dyspnea Gastrointestinal Gastrointestinal: Denies change in bowel habits Genitourinary Genitourinary: Denies burning urination or genital lesions Integumentary Integumentary: Denies rash Neurologic Neurologic: Denies confusion, dizziness, headache(s), numbness or weakness Physical Exam Const alert and oriented x3 General Appearance: cooperative Orientation / Consciousness: awake, oriented to person, oriented to place and oriented to time Exam Limitations: no limitations HEENT normocephalic Head and Scalp: normal to inspection, normocephalic and atraumatic Face and Sinus: normal facial exam Eyes General Eye: normal appearance of both eyes Neck full ROM Chest Chest: symmetrical chest wall rise Resp normal respiratory effort and normal air movement Auscultation: clear to auscultation bilaterally Cardio regular rate, regular rhythm, S1 normal heart sound, S2 normal heart sound, no murmurs, no rub, no gallops and no clicks GI normal to inspection, nondistended, normoactive bowel sounds and non-tender appearance of the vagina normal Bladder / Kidney Exam: no CVA tenderness Back/Spine normal ROM Extremity normal to inspection and full ROM Skin no rashes or lesions noted Neuro oriented x3, CN's II-XII intact bilaterally and moves all extremities Sensorium / Orientation: awake, alert and oriented to person Motor Exam: clonus absent Deep Tendon Reflexes: Rt Patellar (L4): 2+ and Lt Patellar (L4): 2+ Assessment & Plan (1) (vaginal after ): PLAN: Plan 1) Routine PP care 2) Pain management 3) Vitals stable 4) Follow up in 2 weeks and 6 weeks PP 5) D/C home
--- NOTE | 2023-03-04 08:44 | DS.PCM_ITS ---
Providers Date of Admission: 03/03/23 Primary Care Physician: Emily Primary Care Phys Reason For Visit: VAGINAL DELIVERY Diagnosis Discharge Diagnosis (1) (vaginal after ): Status: Acute Code(s): O34.219 - Maternal care for unspecified type scar from previous delivery Plan 1) Routine PP care 2) Pain management 3) Vitals stable 4) Follow up in 2 weeks and 6 weeks PP 5) D/C home Medications at Discharge Home Medications [id number] 1 mg tablet See Rx Instructions .Route .COMPLEX 11/28/22 acetaminophen 500 mg tablet 1,000 mg PO Q6H PRN PRN Pain 1-10 Or Fever #0 tabs 03/04/23 ibuprofen 600 mg tablet 600 mg PO Q6H PRN PRN Pain Score 1-3 #0 tabs 03/04/23 Weight / BMI Weight Weight: 153 lb Body Mass Index (BMI) 23.9 ABG / Lab / Microbiology Data Result Diagrams: 03/03/23 07:45 Laboratory: Laboratory Results - last 24 hr 03/03/23 07:45: WBC 9.4, RBC 3.68 L, Hgb 10.0 L, Hct 33.3 L, MCV 90.5, MCH 27.2, MCHC 30.0 L, RDW Std Deviation 48.7 H, RDW Coeff of Muna 14.8 H, Plt Count 244, MPV 10.5, Immature Gran % (Auto) 0.600, Neut % (Auto) 71.2 H, Lymph % (Auto) 18.2 L, [place] % (Auto) 8.4, Eos % (Auto) 1.4, Baso % (Auto) 0.2, Absolute Neuts (auto) 6.7, Absolute Lymphs (auto) 1.70, Nucleated RBC % 0 03/03/23 07:45: Blood Type O POSITIVE, Antibody Screen NEGATIVE 03/03/23 07:45: Syphilis Total Ab Non-reactive Meaningful Use Info Meaningful Use Diagnoses (Choose all that apply): None applicable Discharge Plan Admission Admit Date/Time: 03/03/23 06:56 Primary Reason for Your Visit: vaginal delivery Attending Provider: Patricia Conte Primary Care Provider: Care Physician,No Primary Discharge Orders/Prescriptions Prescriptions: New acetaminophen 500 mg Tablet 1,000 mg PO Q6H PRN PRN (Reason: Pain 1-10 Or Fever) Qty: 0 0RF ibuprofen 600 mg Tablet 600 mg PO Q6H PRN PRN (Reason: Pain Score 1-3) Qty: 0 0RF Continued [id number] 1 mg Tablet See Rx Instructions .ROUTE .COMPLEX Rx Instructions: 1 tab daily Referrals / Follow Up: Care Physician,No Primary [Primary Care Provider] - Disposition Disposition (needs filled in before D/C Order can be placed): Home, Self Care
== END 2023-03-04 12:55 | disposition home or self-care (01) | DRG 560 ==
PROVIDERS: Obstetrics & Gynecology; Admitting Provider Obstetrics & Gynecology; Referring Provider Obstetrics & Gynecology; Visit Provider Obstetrics & Gynecology
DX: O34.219 Maternal care for unspecified type scar from previous cesarean delivery (principal); Z37.0 Single live birth; O69.81X0 Labor and delivery complicated by cord around neck, without compression, not applicable or unspecified; Z3A.39 39 weeks gestation of pregnancy; Z87.59 Personal history of other complications of pregnancy, childbirth and the puerperium; Z87.891 Personal history of nicotine dependence
CPT/HCPCS: 59025; 59050; 85025; 86780; 86850; 86900; 86901; 99221; J7120; G0378

== ENCOUNTER 2024-08-16 12:26 | Day surgery (SDC) | payer MEDICAID, SELFPAY ==
[2024-08-16] VITALS (10 sets, daily range): BP systolic 80–92; BP diastolic 50–64; PULSE 55–99; RESP 14–16; TEMP 36.3–37.2; O2SAT 55–100; BMI 17.6
--- NOTE | 2024-08-16 | POC_PTH ---
PATIENT: VLADIMIR BAH LOC: [facility] [place] U#:[id number] AGE/SX: 24/F ROOM: RE08/16/[address]: Dr. Patricia Conte DO : 2000 BED: DIS: 08/16/2024 SPEC #: [id number] RECD: 08/16/24 16:52 STATUS: JOLENE RELacie #: [id number] RODOLFO: 08/16/24 00:[address]: Patricia Conte DEPT: SURGICAL PATHOLOGY RECD BY: Lele Navas ENTERED: 08/19/24 07:59 SP TYPE: PROD CONC OTHR DR: No Primary Care Phys Tissues: Product of conception, NOS Procedures: Surgery Specimen Level IV HEADER OPERATION: Dilation and curettage, suction PRE-OP DIAGNOSIS: Missed TISSUE SUBMITTED: Products of conception MICROSCOPIC DIAGNOSIS Products of conception, dilation and curettage: [place], gestational endometrium and immature chorionic villi (products of conception), clinically missed . SJ: 08/20/2024 MICROSCOPIC DESCRIPTION Slides are reviewed. GROSS DESCRIPTION Received in fixative is one container labeled with the patient's name and designated Products of conception. The specimen consists of multiple irregular fragments of dark-red clot and spongy tissue that in aggregate measure 6.5 x 6.0 x 1.0 cm. Meat Process Worker sections are submitted in three cassettes. 08/19/2024 TC:5 CPT:74680
[2024-08-16] MEDS: Doxycycline 100 MG CAPSULE 200 MG PO (13:15)
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
[2024-08-16 13:26] LABS: Hematocrit 41.1 % (37-47); Hemoglobin 13.5 g/dL (12.0-15.0); Mean Corp Hgb Conc 32.8 g/dL (32-36); Mean Corpuscular Hgb 30.8 pg (27.0-32.0); Mean Corpuscular Volume 93.8 fL (81-99); Mean Platelet Vol. 9.4 fl (6.2-12.0); Platelet Count 286 K/mm3 (150-450); RBC Distribution Width CV 12.3 % (11.6-14.6); RBC Distribution Width SD 42.7 fl (35.1-43.9); Red Blood Count 4.38 M/mm3 (4.2-5.4); White Blood Count 6.5 K/mm3 (4.4-11.0)
[2024-08-16] MEDS: Silver Nitrate (BKC) 1 EACH (15:27)
--- NOTE | 2024-08-16 15:30 | DCINST_ITS ---
Discharge Instructions Diet Discharge Diet: No restrictions Activity Discharge Activity: May Drive (once you are more than 24 hours out from surgery) and May Shower Follow Up Care Test Results: Test results from this visit will be discussed in further detail at your follow- up appointment, if applicable. Discharge Plan Admission Primary Reason for Your Visit: surgery Attending Provider: Patricia Conte Primary Care Provider: Care Physician,No Primary Instructions Print Language: Polish Discharge Orders/Prescriptions Referrals / Follow Up: Care Physician,No Primary [Primary Care Provider] - Disposition Disposition (needs filled in before D/C Order can be placed): Home, Self Care
--- NOTE | 2024-08-16 15:30 | PCM.DC ---
Discharge Instructions Diet Discharge Diet: No restrictions Activity Discharge Activity: May Drive (once you are more than 24 hours out from surgery) and May Shower (once you are more than 24 hours out from surgery) May resume sexual activity in: 2 weeks (nothing in the vagina, no intercourse, and no soaking in water while you are having the vaginal bleeding) Ice area for (Minutes): 15 Weight Bearing Status: Weight bearing as tolerated Lifting Restrictions: none Dressing / Incision Call your doctor if you observe: Fever of 101 or Higher, Inability to urinate, Inability to have a bowel movement, Using more than 1 pad per hour, Shortness of breath, Dizziness, Swelling in the ankles, Chest pain, Increased palpitations (irregular heartbeat), Calf discomfort and Uncontrolled pain Cleanse incision/area with: Soap & Water Follow Up Care Please Follow Up With: Patricia Conte DO When: 1-2 weeks for a follow up Test Results: Test results from this visit will be discussed in further detail at your follow-up appointment, if applicable. Discharge Plan Admission Primary Reason for Your Visit: surgery Attending Provider: Patricia Conte Primary Care Provider: Care PhysicianEmily Primary Instructions Print Language: Azeri Discharge Orders/Prescriptions Referrals / Follow Up: Care Physician,Emily Primary [Primary Care Provider] - Disposition Disposition (needs filled in before D/C Order can be placed): Home, Self Care
--- NOTE | 2024-08-16 15:36 | OP.PCM_ITS ---
Problems Associated Problem List Diagnoses (1) Missed : Operative Report (Standard) Operative Information Surgery/Procedure Performed: Suction D&C Surgeon: Patricia Conte Date of Procedure: 08/16/24 Procedure Start Time: 15:10 Procedure Stop Time: 15:28 Pre-Operative Diagnosis: MAB at 5 weeks Post-Operative Diagnosis: MAB at 5 weeks Select all DRAINS/GRAFTS/IMPLANTS that apply: None Type of Anesthesia: MAC Estimated Blood Loss: 50 mL Fluids Replaced: None Specimen collected: Yes Description of specimen(s) removed: Products of conception Description of surgery: The patient was taken to the OR where MAC was found to be adequate. A weighted speculum was placed in the vagina to expose the cervix. The anterior lip of the cervix was grasped with single-tooth tenaculum. The cervix was serially dilated to accommodate a size 7 suction curettage. The size 7 suction curettage was used on multiple passes with removal of products of conception. A sharp curettage was then performed along the anterior uterine wall and posterior uterine wall with products of conception noted posteriorly. Therefore a size 8 suction curettage was then used for multiple passes with removal of remaining products of conception until no further products were noted. A sharp curettage was performed along all 4 vazquez of the uterus noting a good uterine cry. Bleeding was scant. Instruments were removed from the vagina. A vaginal sweep was performed. Sponge counts were correct. The patient was taken to the recovery in stable condition. Surgical Findings: Enlarged 6 week sized uterus Mechanical Assembly Technician drop board man: No Complications Complications: No Admit VTE Documentation VTE Present on Admission: No VTE Mechan Device Prophylaxis: SCD's
--- NOTE | 2024-08-16 15:52 | POSTOPAN2_ITS ---
Anesthesia Postop Eval I Sum Postop Eval Completion status Anesthesia document: Postop Eval 1 completed: Yes Anesthesia Postop Eval I Summary Anesthesia Postop Eval I Summary: Anesthesia Postop Eval I: Assessment Summary Airway patent Yes 08/16/24 15:52 MOLD [email or web address] Spontaneous unlabored Yes 08/16/24 15:52 MOLD [email or web address].MDOT respirations Mental status Awake,Calm 08/16/24 15:52 MOLD CARPENTER.MDOT nausea No 08/16/24 15:52 MOLD CARPENTER.MDOT Vomiting No 08/16/24 15:52 MOLD [email or web address] Anesthesia Postop Eval I: Fluid Summary Crystalloid volume administer 50 08/16/24 15:52 MOLD CARPENTER.MDOT (ml) Colloids volume administered ( ml) Blood Product volume administered (ml) Total IV fluid infused 50 08/16/24 15:52 MOLD [email or web address] Anesthesia Postop Eval I: Summary Notes Anesthesia Complication No 08/16/24 15:52 MOLD [email or web address] Anesthesia Complication Comment: Post-operative progress note Anesthesia: Postop Eval II Evaluation Mental status: Awake and Calm Pain Level: 0 nausea: No Vomiting: No Complications Anesthesia Complication: No
--- NOTE | 2024-08-16 15:52 | PCM.POST.ANE ---
Anesthesia: Postop Eval I Current Vital Signs Temperature: 97.3 F Pulse Rate: 95 Blood Pressure: 85/56 Respiratory Rate: 16 Pulse Ox: 98 Oxygen Delivery Method: Room Air Assessment Airway patent: Yes Spontaneous unlabored respirations: Yes Mental status: Awake and Calm nausea: No Vomiting: No Anesthesia Complication: No Fluid Hydration Crystalloid volume administer (ml): 50 Total IV fluid infused: 50 Progress Note Anesthesia document: Postop Eval 1 completed: Yes
--- NOTE | 2024-08-16 15:52 | PCM.POSTANE2 ---
Anesthesia Postop Eval I Sum Postop Eval Completion status Anesthesia document: Postop Eval 1 completed: Yes Anesthesia Postop Eval I Summary Anesthesia Postop Eval I Summary: Anesthesia Postop Eval I: Assessment Summary Airway patent Yes 08/16/24 15:52 MOLD SHOP SUPERVISOR.MDOT Spontaneous unlabored Yes 08/16/24 15:52 MOLD SHOP SUPERVISOR.MDOT respirations Mental status Awake,Calm 08/16/24 15:52 MOLD SHOP SUPERVISOR.MDOT nausea No 08/16/24 15:52 MOLD SHOP SUPERVISOR.MDOT Vomiting No 08/16/24 15:52 MOLD SHOP SUPERVISOR.MDOT Anesthesia Postop Eval I: Fluid Summary Crystalloid volume administer 50 08/16/24 15:52 MOLD SHOP SUPERVISOR.MDOT (ml) Colloids volume administered ( ml) Blood Product volume administered (ml) Total IV fluid infused 50 08/16/24 15:52 MOLD SHOP SUPERVISOR.MDOT Anesthesia Postop Eval I: Summary Notes Anesthesia Complication No 08/16/24 15:52 MOLD SHOP SUPERVISOR.MDOT Anesthesia Complication Comment: Post-operative progress note Anesthesia: Postop Eval II Evaluation Mental status: Awake and Calm Pain Level: 0 nausea: No Vomiting: No Complications Anesthesia Complication: No
== END 2024-08-16 16:46 | disposition home or self-care (01) ==
LOC: SDC 12:29 → AC 12:30
PROVIDERS: Referring Provider Obstetrics & Gynecology; Visit Provider Obstetrics & Gynecology
PROC: (CPT 59820; principal; 2024-08-16 13:45)
DX: O02.1 Missed abortion (principal); Z87.891 Personal history of nicotine dependence
CPT/HCPCS: 59820; 01965; 85027; 86850; 86900; 86901; 88305; A4216; J2405